=== PATIENT | male | born 1990 | race Hispanic/Latino ===

== ENCOUNTER 2018-06-27 15:57 | Emergency (ER) | payer BC ==
[2018-06-27 16:34] VITALS: RESP 18; BMI 25.0
[2018-06-27] MEDS ORDERED: Sodium Chloride 0.9% 1,000 ML IV STA (17:12)
--- NOTE | 2018-06-27 17:25 | ED PDOC ---
History of Present Illness History of Present Illness: 28yo male, otherwise well, comes to ER with complaints of fever, nausea, vomiting, and bodyaches since 3 days. Patient states he recently spent 8 days in [place] and returned last night; states prior to leaving he felt fine and was a little "achy" 2 days ago, but by the time he was on the flight, he was feeling very unwell. Patient was evaluated at an urgent care this morning and was prescr ibed tamiflu; no flu swab done. Patient took tamiflu at home but immediately vomited, prompted ER visit; patient unable to tolerate PO intake. No chest pain, shortness of breath or other complaints. PMD: None HPI: Influenza Time Seen by Provider: 06/27/18 17:10 Chief Complaint: GI Problem Chief Complaint (Provider): Vomiting, fever, chills History Per: Patient Past Medical History Reviewed: Historical Data, Nursing Documentation, Vital Signs Vital Signs: Last Vital Signs Temp 99.7 F H 06/27/18 16:33 Pulse 116 H 06/27/18 16:33 Resp 18 06/27/18 16:33 BP 117/70 06/27/18 16:33 Pulse Ox 96 06/27/18 16:33 - Medical History PMH: No Chronic Diseases - Surgical History Surgical History: No Surg Hx - Family History Family History: States: No Known Family Hx - Allergies Allergies/Adverse Reactions: Allergies Allergy/AdvReac Type Severity Reaction Status Date / Time No Known Allergies Allergy Verified 01/05/16 17:33 Review of Systems ROS Statement: Except As Marked, All Systems Reviewed And Found Negative Constitutional: Positive for: Fever, Chills, Malaise Cardiovascular: Negative for: Chest Pain Respiratory: Negative for: Shortness of Breath Gastrointestinal: Positive for: Nausea, Vomiting Physical Exam - Reviewed Nursing Documentation Reviewed: Yes Vital Signs Reviewed: Yes - Physical Exam Appears: Positive for: Non-toxic, Uncomfortable (tired, no distress) Head Exam: Positive for: ATRAUMATIC, NORMAL INSPECTION, NORMOCEPHALIC Skin: Positive for: Normal Color Eye Exam: Positive for: EOMI, PERRL Neck: Positive for: Normal, Supple Cardiovascular/Chest: Positive for: Regular Rate, Rhythm, Chest Non Tender Respiratory: Positive for: Normal Breath Sounds. Negative for: Wheezing, Respiratory Distress Gastrointestinal/Abdominal: Positive for: Normal Exam, Soft Back: Positive for: Normal Inspection Extremity: Positive for: Normal ROM. Negative for: Pedal Edema Neurological/Psych: Positive for: Awake, Alert, Oriented (x 3 ) Medical Decision Making Medical Decision Making: Flu vs. other viral syndrome Plan: -- Labs -- IV fluids -- Toradol 30mg IV -- Rapid flu Scribe Attestation: Documented by Leisa Virk acting as a scribe for Kasie Alcazar MD. Provider Attestation: All medical record entries made by the Scribe were at my direction and personally dictated by me. I have reviewed the chart and agree that the record accurately reflects my personal performance of the history, physical exam, medical decision making, and the department course for this patient. I have also personally directed, reviewed, and agree with the discharge instructions and di sposition. - Laboratory Results Result Diagrams: 06/27/18 17:53 06/27/18 17:53 - ECG O2 Sat by Pulse Oximetry: 96 Disposition - Clinical Impression Clinical Impression: Influenza A - Disposition Disposition: Routine/Home Disposition Time: 20:35 Condition: IMPROVED Additional Instructions: Follow up with primary medical doctor in 3 to 5 days. Increase rest and drink plenty of fluids while symptoms last. Take Tylenol or Motrin for fever. Take Tamiflu twice per day for 5 days. Instructions: Flu, Adult (DC) Forms: [facility] (Irish), [facility] ED School/Work Excuse Print Language: THAI
[2018-06-27 17:40] LABS: VENOUS BLOOD GAS BASE EXCESS 1.7 mmol/L (0.0-2.0); VENOUS BLOOD GAS PCO2 51 mmHg (40-60); VENOUS BLOOD GAS PO2 24 mm/Hg (30-55); VENOUS BLOOD PH 7.35 (7.32-7.43)
[2018-06-27 18:02] LABS: BASO % 0.6 % (0.0-2.0); EOS % 0.1 % (0.0-4.0); HEMOGLOBIN 15.6 g/dL (12.0-18.0); LYMPH # 0.6 K/uL (1.0-4.3); LYMPH % 17.4 % (20.0-40.0); MEAN CELL VOLUME 92.5 fl (80.0-94.0); MEAN CORPUSCULAR HEMOGLOBIN 30.9 pg (27.0-31.0); MEAN CORPUSCULAR HGB CONC 33.4 g/dL (33.0-37.0); MEAN PLATELET VOLUME 8.6 fl (7.2-11.7); MONO # 0.8 K/uL (0.0-0.8); MONO % 21.1 % (0.0-10.0); NEUT # 2.3 K/uL (1.8-7.0); NEUT % 60.8 % (50.0-75.0); NRBC % 0.1 % (0.0-0.0); PLATELET COUNT 168 K/uL (130-400); RBC 5.07 Mil/uL (4.40-5.90); RED CELL DISTRIBUTION WIDTH 13.1 % (11.5-14.5); WHITE BLOOD COUNT 3.7 K/uL (4.8-10.8)
[2018-06-27 18:19] LABS: BLOOD UREA NITROGEN 13 mg/dl (9-20); CALCIUM 9.6 mg/dL (8.4-10.2); GFR NON-AFRICAN AMERICAN > 60
[2018-06-27 19:13] LABS: LYMPHOCYTE 13 % (20-50); MONOCYTE 20 % (0-10); NEUTROPHIL 67 % (42-75); PLATELET ESTIMATE NORMAL (NORMAL); TOTAL CELLS COUNTED 100
[2018-06-27 20:58] VITALS: BP 122/77; PULSE 92; TEMP 99.2
--- NOTE | 2018-06-28 08:57 | RAD ---
Date of service: 06/27/2018 HISTORY: cough COMPARISON: No prior. TECHNIQUE: Chest PA and lateral FINDINGS: LUNGS: No active pulmonary disease. PLEURA: No significant pleural effusion identified. No pneumothorax apparent. CARDIOVASCULAR: No aortic atherosclerotic calcification present. Normal cardiac size. No pulmonary vascular congestion. OSSEOUS STRUCTURES: No significant abnormalities. VISUALIZED UPPER ABDOMEN: Normal. OTHER FINDINGS: None. IMPRESSION: No acute cardiopulmonary disease appreciated.
[2018-06-28 19:04] VITALS: O2SAT 96
== END 2018-06-27 20:47 | disposition home or self-care (01) ==
LOC: H.ER 15:57
DX: J11.1 Influenza due to unidentified influenza virus with other respiratory manifestations (principal)
CPT/HCPCS: 71046; 80048; 82803; 85025; 87804; 96361; 96374; 96375; 99285; J1885; J2405; J7030